=== PATIENT | female | born 1965 | race Caucasian/White ===

== ENCOUNTER 2016-11-17 21:25 | Observation (INO) | payer MEDICARE ==
[~2016-11-17] VITALS: Ht 162.6 cm; Wt 54.0 kg
[2016-11-17 22:06] LABS: BASO % 0.1 % (0.1-1.2); EOS # 0.1 10_X3_uL (0.0-0.4); EOS % 1.2 % (0.7-5.8); GRAN # 6.9 10_X3_uL (1.6-6.1); GRAN % 68.2 % (34.0-71.1); HEMOGLOBIN 13.3 g/dL (11.2-15.7); LYMPH # 2.5 10_X3_uL (1.2-3.7); LYMPH % 24.4 % (19.3-51.7); MEAN CORPUSCULAR VOLUME 91.3 fL (79-95); MEAN PLATELET VOLUME 11.3 fl (7.5-11.5); MONO # 0.6 10_X3_uL (0.2-0.9); MONO % 6.1 % (4.7-12.5); PLATELET COUNT 112 x10_3/uL (182-369); RED BLOOD COUNT 4.16 x10_6/uL (3.9-5.2); RED CELL DISTRIBUTION WIDTH 12.8 % (11.7-14.4); WHITE BLOOD COUNT 10.1 x10_3/uL (4.0-10.0)
[2016-11-17 22:32] LABS: BLOOD UREA NITROGEN 9 mg/dL (7-18); CALCIUM 8.9 mg/dL (8.7-10.7); CARBON DIOXIDE 23 mmol/L (21-32); CREATININE 0.6 mg/dL (0.6-1.3); GLUCOSE,RANDOM 127 mg/dL (70-99); POTASSIUM 3.5 mmol/L (3.5-5.1); SODIUM 136 mmol/L (136-145)
== END 2016-11-19 11:00 | disposition home or self-care (01) ==
LOC: ER 21:25 → MS 22:51
PROVIDERS: General Practice; ADMIT Family Medicine
DX: J44.1 Chronic obstructive pulmonary disease with (acute) exacerbation (principal); J20.9 Acute bronchitis, unspecified; J44.0 Chronic obstructive pulmonary disease with (acute) lower respiratory infection; K21.9 Gastro-esophageal reflux disease without esophagitis; R11.0 Nausea; Z86.19 Personal history of other infectious and parasitic diseases; F17.210 Nicotine dependence, cigarettes, uncomplicated; Z90.710 Acquired absence of both cervix and uterus; Z79.899 Other long term (current) drug therapy; Z88.1 Allergy status to other antibiotic agents
CPT/HCPCS: 36415; 71010; 80048; 83605; 85025; 86738; 87040; 87070; 87205; 87449; 94640; 94664; 96361; 96372; 96374; 96375; 99070; 99284-25; G0378; J2930; J7050